=== PATIENT | male | born 1960 | race Caucasian/White ===

== ENCOUNTER 2017-12-24 13:39 | Observation (INO) | payer OTHER ==
[~2017-12-24] VITALS: Ht 185.4 cm; Wt 99.1 kg
[~2017-12-24 13:39] MED LIST: OMEPRAZOLE40 M1 PO
[2017-12-24 14:21] LABS: HEMOGLOBIN 13.8 G/DL (12.5-16.6); MCH 29.7 PG (29.0-34.0); MCHC 35.4 G/DL (30.0-36.0); MCV 83.9 FL (86-99); PLATELET COUNT 231 K/uL (156-360); RBC DIS.WIDTH-CV 12.6 % (11.8-14.6); RBC DIS.WIDTH-SD 38.2 % (39-53); RED BLOOD COUNT 4.65 M/uL (4.00-5.50); WHITE BLOOD COUNT 5.3 K/uL (4.1-10.2)
[2017-12-24 14:31] LABS: CHLORIDE 105 mEq/L (99-109); POTASSIUM 4.5 mEq/L (3.7-5.4); SODIUM 139 mEq/L (136-147)
[2017-12-24 14:32] LABS: GLUCOSE 93 mg/dL (70-99)
[2017-12-24 14:36] LABS: CREATININE 0.9 mg/dL (0.6-1.3); GFR ESTIMATE (CALCULATED) > 59 mL/min/ (58.99-99999)
[2017-12-24 14:37] LABS: UREA NITROGEN (BUN) 18 mg/dL (9-23)
[2017-12-24 14:42] LABS: TROP-I INTERPRETATION NEGATIVE; TROPONIN-I < 0.01 ng/mL (0.0-0.30)
[2017-12-24] MEDS ORDERED: LITE COAT ASPI325 M1 PO (16:00)
[2017-12-24 17:35] LABS: TROP-I INTERPRETATION NEGATIVE; TROPONIN-I < 0.01 ng/mL (0.0-0.30)
[2017-12-24 17:53] LABS: D-DIMER ELISA < 150.00 ng/mLDDU (<230)
[2017-12-24 19:39] VITALS: BP 136/85
[2017-12-24 23:49] VITALS: BP 118/64
[2017-12-25 00:45] LABS: TROP-I INTERPRETATION NEGATIVE; TROPONIN-I < 0.01 ng/mL (0.0-0.30)
[2017-12-25 03:57] VITALS: BP 119/66
[2017-12-25 06:10] LABS: TROP-I INTERPRETATION NEGATIVE; TROPONIN-I < 0.01 ng/mL (0.0-0.30)
[2017-12-25 06:16] LABS: HDL CHOLESTEROL 32 MG/DL (Desirable>=40); LDL CHOLESTEROL 84 mg/dL (Desirable<100); NON-HDL CHOLESTEROL 143 mg/dL (Desirable<160); TOTAL CHOLESTEROL 175 mg/dL (Desirable<200); TRIGLYCERIDES 295 MG/DL (Normal: <150)
[2017-12-25 07:33] VITALS: BP 120/71
[2017-12-25 11:30] VITALS: BP 135/72
[2017-12-25 12:25] LABS: APPEARANCE CLEAR ((CLEAR)); BILIRUBIN NEGATIVE; BLOOD SMALL; COLOR STRAW ((YELLOW)); GLUCOSE (STRIP) NEGATIVE; KETONES NEGATIVE; LEUKOCYTES NEGATIVE; NITRITE NEGATIVE; PROTEIN (STRIP) NEGATIVE; SPECIFIC GRAVITY 1.004 (1.000-1.030); UROBILINOGEN 0.2 MG/DL (0.2-1.0)
[2017-12-25 12:28] LABS: BACTERIA NONE SEEN /HPF; EPITHELIAL CELLS NONE SEEN /HPF; MUCUS NONE SEEN /LPF; RED BLOOD CELLS NONE SEEN /HPF (0-5); UCUL ADDED? NO; WHITE BLOOD CELLS NONE SEEN /HPF (0-5)
[2017-12-25] MEDS ORDERED: NITROSTAT0.4 MG SL (14:42)
[2017-12-25 15:42] VITALS: BP 122/72
== END 2017-12-25 17:24 | disposition home or self-care (01) ==
LOC: EME 13:39 → EDOF 17:17 → ENRESERV 17:19 → 5WEST 19:29
PROVIDERS: Emergency Medicine Emergency Medical Services; Internal Medicine; Nurse Practitioner Adult Health
DX: R07.9 Chest pain, unspecified (principal); D86.9 Sarcoidosis, unspecified; R06.09 Other forms of dyspnea; E78.2 Mixed hyperlipidemia; R94.31 Abnormal electrocardiogram [ECG] [EKG]; Z82.49 Family history of ischemic heart disease and other diseases of the circulatory system; R03.0 Elevated blood-pressure reading, without diagnosis of hypertension; R51 Headache; K21.9 Gastro-esophageal reflux disease without esophagitis; Z79.82 Long term (current) use of aspirin; Z88.1 Allergy status to other antibiotic agents; Z88.2 Allergy status to sulfonamides
CPT/HCPCS: 71045; 74176; 80048; 80061; 81003; 84484; 85027; 85379; 93005; 99281; 99285; G0378